=== PATIENT | male | born 1955 | race Caucasian/White ===

== ENCOUNTER 2018-12-14 12:30 | Inpatient (IN) | payer OTHER ==
[~2018-12-14] VITALS: Ht 175.3 cm; Wt 103.8 kg
[2018-12-14 13:30] VITALS: BP 137/76
[2018-12-14] MEDS ORDERED: ASPI81TA45 PO (14:32)
[2018-12-14] MEDS ORDERED: SODIUM CHLORIDE 0.9% 1,000 ML IV SCH (15:14)
[2018-12-14] MEDS ORDERED: POLYETHYLENE GLYCOL 17 GM PACKET PO PRN (15:30)
[2018-12-14] MEDS ORDERED: NITROGLYCERIN 0.4 MG BOTTLE (25 TABS) SL PRN (15:30)
[2018-12-14] MEDS ORDERED: morphine SULFATE 10 MG/ML, 1ML IVPush PRN (15:30)
[2018-12-14] MEDS ORDERED: ONDANSETRON 2MG/ML, 2ML IVPush PRN (15:30)
[2018-12-14] MEDS ORDERED: GABAPENTIN 100 MG CAPSULE PO PRN (15:30)
[2018-12-14] MEDS ORDERED: DOCUSATE 100 MG CAPSULE PO PRN (15:30)
[2018-12-14] MEDS ORDERED: METHOCARBAMOL 500 MG TABLET PO PRN (15:30)
[2018-12-14] MEDS ORDERED: NITROGLYCERIN 0.4 MG/SPRAY SL PRN (15:30)
[2018-12-14] MEDS ORDERED: ACETAMINOPHEN 325 MG TABLET PO PRN (15:30)
[2018-12-14] MEDS: SODIUM CHLORIDE 0.9% 1,000 ML IV SCH (15:57)
[2018-12-14] MEDS: ENOXAPARIN 40 MG/0.4 ML SQ SCH (15:57)
[2018-12-14] MEDS ORDERED: PLEASE ENTER ALLERGIES MC SCH (16:00)
[2018-12-14] MEDS: INSULIN LISPRO 100 UNITS/ML, PEN SQ-INSULIN SCH ×2 (16:00→21:25)
[2018-12-14 16:51] LABS: TROPONIN I < 0.015 ng/mL (0.000-0.045)
[2018-12-14 16:53] LABS: HEMOGLOBIN A1C 5.7 % (4.2-6.3)
[2018-12-14 17:01] LABS: MICROSCOPIC NOT IND
[2018-12-14 17:17] LABS: CULTURE INDICATED? NO
[2018-12-14] MEDS ORDERED: OMNIPAQUE 350 MG/ML, 100ML BOTTLE ONE (17:17)
[2018-12-14 17:38] LABS: OSMOLALITY,URINE 976 mOsm/kg (500-850)
[2018-12-14 19:43] VITALS: BP 117/75
[2018-12-14] MEDS: SODIUM CHLORIDE FLUSH 10ML SYR IVF SCH (21:22)
[2018-12-14 23:15] LABS: TROPONIN I < 0.015 ng/mL (0.000-0.045)
[2018-12-15] VITALS (7 sets, daily range): BP systolic 107–181; BP diastolic 69–107
[2018-12-15] MEDS: ENALAPRILAT 1.25 MG/ML, 2ML IVPush PRN ×2 (04:14→04:37)
[2018-12-15 04:53] LABS: ALBUMIN 3.7 g/dL (3.4-5.0); ANION GAP 7 mmol/L (5-15); CALCIUM 8.4 mg/dL (8.5-10.1); CHLORIDE 108 mmol/L (98-107)
[2018-12-15 04:57] LABS: ALANINE AMINOTRANSFERASE 89 U/L (12-78); ALKALINE PHOSPHATASE 75 U/L (45-117); BILIRUBIN,TOTAL 1.4 mg/dL (0.2-1.0); CHOL/HDL RATIO 4.5; CHOLESTEROL, TOTAL 214 mg/dL (140-239); CREATININE 0.87 mg/dL (0.7-1.3); HDL CHOL % 22 % (26-37); HDL CHOLESTEROL (DIRECT) 48 mg/dL (40-60); LDL CHOLESTEROL,CALCULATED 145 mg/dL (54-169); TOTAL PROTEIN 6.7 g/dL (6.4-8.2); TRIGLYCERIDES 105 mg/dL (50-200); VLDL CHOLESTEROL 21 mg/dL (0-25)
[2018-12-15 05:02] LABS: MEAN CORPUSCULAR HEMOGLOBIN 37.8 pg (27.5-34.5); MEAN CORPUSCULAR HGB CONC 34.5 g/dL (33.2-36.2); MEAN CORPUSCULAR VOLUME 109.6 fL (81-97); MEAN PLATELET VOLUME 8.6 fL (7.4-10.4); PLATELET COUNT 146 x10^3/uL (130-400); RED CELL DISTRIBUTION WIDTH 17.6 % (9.4-14.8)
[2018-12-15] MEDS: SODIUM CHLORIDE 0.9% 1,000 ML IV SCH (05:30)
[2018-12-15] MEDS: ASPIRIN 325 MG TABLET EC PO SCH (05:30)
[2018-12-15 05:56] LABS: MD YES
[2018-12-15 05:59] LABS: BAND#(MANUAL) 0.03 x10^3/uL; BANDS%(MANUAL) 1 % (0-7); EOS#(MANUAL) 0.06 x10^3/uL (0.0-0.4); EOS% (MANUAL) 2 % (1-7); LYMPH#(MANUAL) 0.87 x10^3/uL (1-3.4); LYMPHS% (MANUAL) 28 % (22-44); MONOS#(MANUAL) 0.59 x10^3/uL (0.3-2.7); MONOS% (MANUAL) 19 % (2-9); SEG#(MANUAL) 1.55 x10^3/uL (1.8-6.8); SEGS% (MANUAL) 50 % (42-75)
[2018-12-15 06:00] LABS: <PLATELET ESTIMATE> ADEQUATE; <PLT MORPHOLOGY> NORMAL PLT MORPH; ANISOCYTOSIS 1+
[2018-12-15] MEDS ORDERED: hydrALAzine 20 MG/ML, 1ML IV ONE ×2 (06:00→08:30)
[2018-12-15] MEDS: INSULIN LISPRO 100 UNITS/ML, PEN SQ-INSULIN SCH ×2 (07:00→11:00)
[2018-12-15] MEDS: SODIUM CHLORIDE FLUSH 10ML SYR IVF SCH ×2 (08:44→19:59)
[2018-12-15] MEDS ORDERED: REGADENOSON 0.4 MG/5 ML SYRINGE ONE (11:28)
[2018-12-15] MEDS: LOSARTAN 50MG TABLET PO SCH (14:13)
[2018-12-15] MEDS: ENOXAPARIN 40 MG/0.4 ML SQ SCH (14:20)
[2018-12-15] MEDS ORDERED: SODIUM CHLORIDE 0.9% 1,000 ML IV SCH (15:14)
[2018-12-15] MEDS: CARVEDILOL 3.125 MG TABLET PO SCH (17:37)
[2018-12-16 00:48] VITALS: BP 155/86
[2018-12-16 05:19] LABS: ALBUMIN 3.5 g/dL (3.4-5.0); ANION GAP 8 mmol/L (5-15); CALCIUM 8.7 mg/dL (8.5-10.1); CHLORIDE 109 mmol/L (98-107)
[2018-12-16 05:24] LABS: ALANINE AMINOTRANSFERASE 80 U/L (12-78); ALKALINE PHOSPHATASE 70 U/L (45-117); BILIRUBIN,TOTAL 1.4 mg/dL (0.2-1.0); TOTAL PROTEIN 6.6 g/dL (6.4-8.2)
[2018-12-16 06:01] VITALS: BP 171/98
[2018-12-16] MEDS: CARVEDILOL 3.125 MG TABLET PO SCH (06:06)
[2018-12-16] MEDS: ASPIRIN 325 MG TABLET EC PO SCH (06:07)
[2018-12-16 07:21] VITALS: BP_SYST 170; BP_SYST 184; BP_DIAS 102; BP_DIAS 118
[2018-12-16] MEDS: LOSARTAN 50MG TABLET PO SCH (07:41)
[2018-12-16] MEDS: SODIUM CHLORIDE FLUSH 10ML SYR IVF SCH (07:44)
[2018-12-16 09:30] VITALS: BP 116/73
[2018-12-16] MEDS ORDERED: CARV6.2512 PO (11:03)
[2018-12-16] MEDS ORDERED: DOCU-131 PO (11:03)
[2018-12-16] MEDS ORDERED: LOSA25TA2 PO (11:03)
[2018-12-16] MEDS ORDERED: CARVEDILOL 6.25 MG TABLET ONE (12:00)
[2018-12-16] MEDS ORDERED: CARVEDILOL 6.25 MG TABLET PO SCH (18:00)
== END 2018-12-16 13:49 | disposition home or self-care (01) | DRG 197 ==
LOC: 5SO 13:46
PROVIDERS: ADMIT Internal Medicine; ATTEND Internal Medicine
DX: D86.9 Sarcoidosis, unspecified (principal); I47.1 Supraventricular tachycardia; E87.1 Hypo-osmolality and hyponatremia; R07.9 Chest pain, unspecified; D75.89 Other specified diseases of blood and blood-forming organs; I10 Essential (primary) hypertension; I44.0 Atrioventricular block, first degree; I45.10 Unspecified right bundle-branch block; K76.0 Fatty (change of) liver, not elsewhere classified; R73.9 Hyperglycemia, unspecified; R21 Rash and other nonspecific skin eruption; R91.8 Other nonspecific abnormal finding of lung field; R59.0 Localized enlarged lymph nodes; Z79.82 Long term (current) use of aspirin; Z82.3 Family history of stroke
CPT/HCPCS: 36415; 70450; 71260; 76700; 78452; 80053; 80061; 81003; 82164; 82607; 82962; 83036; 83735; 83880; 83930; 83935; 84443; 84484; 85025; 93005; 93017; 93306; G0378; J1650; J2785; Q9967; A9502; C9898; J0360; J7030

== ENCOUNTER 2018-12-31 19:47 | Emergency (ER) | payer OTHER ==
[~2018-12-31] VITALS: Ht 175.3 cm; Wt 104.0 kg
[~2018-12-31 19:47] MED LIST: ASPI81TA45 PO; CARV6.2512 PO; DOCU-131 PO; LOSA25TA2 PO
--- NOTE | 2018-12-31 20:24 | NUR ---
PT COOPERATIVE BUT APPEARS INEBRIATED. AFTER XRAY COMPLETED, PT LYING ON SIDE IN BED
[2018-12-31 20:43] LABS: BASOPHILS # (AUTO) 0.03 x10^3/uL (0-0.1); BASOPHILS % (AUTO) 1 % (0-1); EOSINOPHILS # (AUTO) 0.05 x10^3/uL (0-0.4); EOSINOPHILS % (AUTO) 1 % (1-7); LYMPHOCYTES # (AUTO) 1.61 x10^3/uL (1-3.4); LYMPHOCYTES % (AUTO) 30 % (22-44); MD NO; MEAN CORPUSCULAR HEMOGLOBIN 36.3 pg (27.5-34.5); MEAN CORPUSCULAR HGB CONC 33.3 g/dL (33.2-36.2); MEAN CORPUSCULAR VOLUME 108.8 fL (81-97); MONOCYTES # (AUTO) 0.47 x10^3/uL (0.2-0.8); MONOCYTES % (AUTO) 9 % (2-9); NEUTROPHILS # (AUTO) 3.23 x10^3/uL (1.8-6.8); NEUTROPHILS % (AUTO) 60 % (42-75); PLATELET COUNT 157 x10^3/uL (130-400); RED CELL DISTRIBUTION WIDTH 16.9 % (9.4-14.8)
[2018-12-31 20:53] LABS: ALANINE AMINOTRANSFERASE 91 U/L (12-78); ANION GAP 9 mmol/L (5-15); CALCIUM 8.3 mg/dL (8.5-10.1); CHLORIDE 108 mmol/L (98-107)
[2018-12-31 20:58] LABS: ALKALINE PHOSPHATASE 93 U/L (45-117); BILIRUBIN,TOTAL 0.4 mg/dL (0.2-1.0); TOTAL PROTEIN 7.3 g/dL (6.4-8.2); TROPONIN I < 0.015 ng/mL (0.000-0.045)
--- NOTE | 2018-12-31 21:13 | NUR ---
REPORT TO EROS CARREON. PT IN [facility] WITH CALL LIGHT, YELLOW GOWN AND SLIPPERS. URINAL HANGING FROM RAIL. INSTRUCTED TO USE CALL LIGHT AND NOT TO GET OUT OF BED FOR ANY NEEDS
[2018-12-31 23:10] VITALS: BP 105/76
== END 2018-12-31 23:33 | disposition home or self-care (01) ==
LOC: ED 21:23
DX: F10.129 Alcohol abuse with intoxication, unspecified (principal); R55 Syncope and collapse; R42 Dizziness and giddiness; I10 Essential (primary) hypertension
CPT/HCPCS: 36415; 71045; 80053; 80307; 84484; 85025; 93005; 99284